=== PATIENT | female | born 1950 | race Caucasian/White ===

== ENCOUNTER 2016-08-25 20:41 | Emergency (ER) | payer BC ==
[~2016-08-25] VITALS: Ht 162.6 cm; Wt 61.0 kg
[~2016-08-25 20:41] MED LIST: BUTA1CAP PO; CALCTAB80 PO
[2016-08-25 20:48] VITALS: BP 120/62; PULSE 66; RESP 16; TEMP 97.7; O2SAT 100
[2016-08-25] MEDS ORDERED: CIPR3.5O RIGHT EYE (21:14)
--- NOTE | 2016-08-25 21:15 | PD ---
HPI Chief Complaint: Eye Problems/Injury Time Seen by Provider: 20:55 Travel History International Travel<30 days: No Contact w/Intl Traveler<30days: No Traveled to known affect area: No History of Present Illness HPI 66 year old female presents to the emergency room for evaluation of right eye irritation with foreign body sensation. She reports that earlier today she was mowing the grass outside and shortly thereafter felt as if she had a foreign body in her right eye. She attempted to irrigate the eye with eyewash several times with no relief. She reports mild visual changes related to the amount of tearing the eye is doing. Mild pain and irritation in the right eye. Foreign body sensation. PFSH Past Medical History Medical History: Denies Significant Hx Diminished Hearing: No Immunizations Current: No Migraines: Yes Tetanus Vaccination: < 5 Years Influenza Vaccination: Yes ?: Not Menopausal: Yes Past Surgical History Cholecystectomy: Yes (02) Social History Alcohol Use: No (pt states she does not drink) Tobacco Use: No Substance Use: No Allergies-Medications (Allergen,Severity, Reaction): Coded Allergies: Penicillin (Verified Allergy, Severe, RASH, 08/25/16) Reported Meds & Prescriptions Reported Meds & Active Scripts Active Fioricet (Mxrgxpkkti-Bpqhjzopnrpzi-Xdnfvqwn) 50-300-40 Mg Cap 1 Cap PO Q6H PRN Reported Calcium 1000 + D (Calcium Carbonate-Cholecalciferol) 1,000-800 Mg-Unit Tab 1 Tab PO BID Review of Systems Except as stated in HPI: all other systems reviewed are Neg Physical Exam Narrative GENERAL: [-] SKIN: Focused skin assessment warm/dry. HEAD: Atraumatic. Normocephalic. EYES: Pupils equal and round. No scleral icterus. Corneas clear. EOMs intact. Right eye injection. Ramires lamp exam of right eye: No foreign body visualized. No fluorescein dye uptake. ENT: No nasal bleeding or discharge. Mucous membranes pink and moist. NECK: Trachea midline. No JVD. CARDIOVASCULAR: Regular rate and rhythm. No murmur appreciated. RESPIRATORY: No accessory muscle use. Clear to auscultation. Breath sounds equal bilaterally. GASTROINTESTINAL: Abdomen soft, non-tender, nondistended. Hepatic and splenic margins not palpable. MUSCULOSKELETAL: No obvious deformities. No clubbing. No cyanosis. No edema. NEUROLOGICAL: Awake and alert. No obvious cranial nerve deficits. Motor grossly within normal limits. Normal speech. PSYCHIATRIC: Appropriate mood and affect; insight and judgment normal. Data Data Last Documented VS Vital Signs Date Time Temp Pulse Resp B/P Pulse Ox O2 Delivery O2 Flow Rate FiO2 08/25/16 20:48 97.7 66 16 120/62 100 MDM Medical Decision Making Medical Screen Exam Complete: Yes Emergency Medical Condition: Yes Differential Diagnosis Corneal foreign body, corneal abrasion, conjunctivitis Narrative Course 66-year-old female presents emergency department for evaluation of right eye irritation foreign-body sensation. She reports that earlier today while mowing grass sensing male flown into her eye. She attempted to irrigate the eye with eyewash several times with no relief. On exam the eye is injected. No foreign body visualized on exam or under lids. No fluorescein dye uptake. Patient will be treated with antibiotic ointment for corneal abrasion and instructed to follow-up with her systems development manager for recheck tomorrow. Patient agrees to this plan. Has an established systems development manager. Diagnosis Primary Impression: Corneal abrasion Qualified Code: S05.02XA - Corneal abrasion, left, initial encounter Referrals: Nurse Tech Patient Instructions: Corneal Abrasion (ED), General Instructions Additional Instructions: Make an appointment for follow-up with your systems development manager tomorrow. Scripts Ciprofloxacin Opth Oint (Ciloxan Opth Oint)0.3% Oint0.5 Inch RIGHT EYE TID #1 TUBE Ref 0 Prov:Maia Hicks 08/25/16 Disposition: 01 DISCHARGE HOME Condition: Stable Maia Hicks Aug 25, 2016 21:15
== END 2016-08-25 21:21 | disposition home or self-care (01) ==
LOC: PHEFT 20:41
DX: S05.02XA Injury of conjunctiva and corneal abrasion without foreign body, left eye, initial encounter (principal); X58.XXXA Exposure to other specified factors, initial encounter; Y93.H2 Activity, gardening and landscaping
CPT/HCPCS: 99283

== ENCOUNTER 2017-05-16 13:17 | Emergency (ER) | payer BC, MEDICARE ==
[~2017-05-16] VITALS: Ht 162.6 cm; Wt 61.0 kg
[~2017-05-16 13:17] MED LIST changes: +TRAZ50TA12 PO
[2017-05-16 13:41] VITALS: BP 152/68; PULSE 70; RESP 16; TEMP 98.2; O2SAT 100
[2017-05-16 15:12] LABS: AUTOMATED NEUTROPHIL # 6.2 TH/MM3 (1.8-7.7); BASOPHIL # 0.1 TH/MM3 (0-0.2); BASOPHIL % 0.9 % (0.0-2.0); EOSINOPHIL # 0.2 TH/MM3 (0-0.4); EOSINOPHIL % 2.2 % (0.0-4.0); HEMATOCRIT 26.1 % (35.0-46.0); HEMOGLOBIN 8.1 GM/DL (11.6-15.3); LYMPH % 15.7 % (9.0-44.0); LYMPHOCYTE # 1.3 TH/MM3 (1.0-4.8); MEAN CELL VOLUME 69.2 FL (80.0-100.0); MEAN CORPUSCULAR HEMOGLOBIN 21.6 PG (27.0-34.0); MEAN CORPUSCULAR HGB CONC 31.2 % (32.0-36.0); MEAN PLATELET VOLUME 7.2 FL (7.0-11.0); MONO % 5.5 % (0.0-8.0); MONOCYTE # 0.5 TH/MM3 (0-0.9); NEUT % 75.7 % (16.0-70.0); PLATELET COUNT 446 TH/MM3 (150-450); RED BLOOD COUNT 3.78 MIL/MM3 (4.00-5.30); RED CELL DISTRIBUTION WIDTH 16.4 % (11.6-17.2); WHITE BLOOD COUNT 8.3 TH/MM3 (4.0-11.0)
[2017-05-16 15:13] LABS: BILIRUBIN, URINE NEG (NEG); BLOOD, URINE NEG (NEG); GLUCOSE,URINE NEG (NEG); KETONE, URINE NEG (NEG); NITRITE,URINE NEG (NEG); PH, URINE 5.5 (5.0-8.5); URINE LEUKOCYTE ESTERASE SMALL (NEG)
--- NOTE | 2017-05-16 15:13 | PD ---
HPI . Constipation Chief Complaint: GI Complaint Time Seen by Provider: 14:47 Travel History International Travel<30 days: No Contact w/Intl Traveler<30days: No Traveled to known affect area: No History of Present Illness HPI This patient presents with chief complaint constipation. Onset was 2 weeks ago. She states that she had just gotten over the flu when she developed constipation. She states that she has attempted to treat it at home increasing her water intake, increasing her exercise, increasing the fiber in her diet and using a fleets enema. None of these have helped. She states that she is "leaking" a brown mucus from her rectum but is unable to have a bowel movement. She states that the leaking is spontaneous and uncontrollable. She denies any urinary symptoms. PFSH Past Medical History Diminished Hearing: No Immunizations Current: No Migraines: Yes ?: Not Menopausal: Yes Past Surgical History Cholecystectomy: Yes (02) Social History Alcohol Use: No (pt states she does not drink) Tobacco Use: No Substance Use: No Allergies-Medications (Allergen,Severity, Reaction): Coded Allergies: penicillin G (Unverified Allergy, Severe, RASH, 05/16/17) Reported Meds & Prescriptions Reported Meds & Active Scripts Active Trazodone (Trazodone HCl) 50 Mg Tab 50 Mg PO HS PRN Fioricet (Ubsmwkgddz-Rxsnwhjeriphp-Gblexaht) 50-300-40 Mg Cap 1 Cap PO Q6H PRN Reported Calcium 1000 + D (Calcium Carbonate-Cholecalciferol) 1,000-800 Mg-Unit Tab 1 Tab PO BID Review of Systems Except as stated in HPI: all other systems reviewed are Neg Physical Exam Narrative GENERAL: Awake and alert and in no acute distress. SKIN: warm/dry. Normal color and turgor. HEAD: Normocephalic. Atraumatic. EYES: Pupils equal and round. No scleral icterus. No injection or drainage. ENT: No nasal bleeding or discharge. Mucous membranes pink and moist. NECK: Trachea midline. Full range of motion without pain.. CARDIOVASCULAR: Regular rate and rhythm. RESPIRATORY: No accessory muscle use. Clear to auscultation. GASTROINTESTINAL: Abdomen soft. Nontender. She does have firmness in both lower quadrants which feel like masses, possibly impacted stool. RECTAL: There is some scant brown stool on her anus. The stool is Hemoccult negative. On digital exam, it feels like there is a mass anteriorly. MUSCULOSKELETAL: No obvious deformities. NEUROLOGICAL: Awake and alert. No obvious cranial nerve deficits. Motor grossly within normal limits. Normal speech. PSYCHIATRIC: Appropriate mood and affect; insight and judgment normal. Data Data Last Documented VS Vital Signs Date Time Temp Pulse Resp B/P (MAP) Pulse Ox O2 Delivery O2 Flow Rate FiO2 05/16/17 17:33 72 16 142/65 (90) 100 Room Air 05/16/17 13:41 98.2 Orders Orders ^ Saline Lock (05/16/17 14:55) Basic Metabolic Panel (Bmp) (05/16/17 14:55) Complete Blood Count With Diff (05/16/17 14:55) Urinalysis - C+S If Indicated (05/16/17 14:55) Ct Abd/Pel W Iv Contrast(Rout) (05/16/17 15:02) Oral Contrast - Adult (05/16/17 15:07) Diatrizoate Liq ( Gastroterra Liq) (05/16/17 15:54) Oral Contrast - Adult (05/16/17 15:56) Iohexol 350 Inj (Omnipaque 350 Inj) (05/16/17 17:19) Labs Laboratory Tests Test 05/16/17 14:50 05/16/17 15:00 Urine Color YELLOW Urine Turbidity CLEAR Urine pH 5.5 Urine Specific [place] 1.010 Urine Protein NEG mg/dL Urine Glucose (UA) NEG mg/dL Urine Ketones NEG mg/dL Urine Occult Blood NEG Urine Nitrite NEG Urine Bilirubin NEG Urine Leukocyte Esterase SMALL Urine WBC 0-2 /hpf Urine Squamous Epithelial Cells 0-5 /hpf Microscopic Urinalysis Comment CULT NOT INDICATED White Blood Count 8.3 TH/MM3 Red Blood Count 3.78 MIL/MM3 Hemoglobin 8.1 GM/DL Hematocrit 26.1 % Mean Corpuscular Volume 69.2 FL Mean Corpuscular Hemoglobin 21.6 PG Mean Corpuscular Hemoglobin Concent 31.2 % Red Cell Distribution Width 16.4 % Platelet Count 446 TH/MM3 Mean Platelet Volume 7.2 FL Neutrophils (%) (Auto) 75.7 % Lymphocytes (%) (Auto) 15.7 % Monocytes (%) (Auto) 5.5 % Eosinophils (%) (Auto) 2.2 % Basophils (%) (Auto) 0.9 % Neutrophils # (Auto) 6.2 TH/MM3 Lymphocytes # (Auto) 1.3 TH/MM3 Monocytes # (Auto) 0.5 TH/MM3 Eosinophils # (Auto) 0.2 TH/MM3 Basophils # (Auto) 0.1 TH/MM3 CBC Comment AUTO DIFF Differential Comment AUTO DIFF CONFIRMED Platelet Estimate HIGH Platelet Morphology Comment ENLARGED Blood Urea Nitrogen 16 MG/DL Creatinine 0.63 MG/DL Random Glucose 91 MG/DL Calcium Level 8.7 MG/DL Sodium Level 141 MEQ/L Potassium Level 3.5 MEQ/L Chloride Level 110 MEQ/L Carbon Dioxide Level 25.1 MEQ/L Anion Gap 6 MEQ/L Estimat Glomerular Filtration Rate 95 ML/MIN MDM Medical Decision Making Medical Screen Exam Complete: Yes Emergency Medical Condition: Yes Differential Diagnosis Differential diagnosis of constipation includes medication effect, irritable bowel syndrome, inadequate fiber, bowel obstruction Narrative Course This patient presents with the chief complaint constipation. I am concerned about rectal cancer. I have discussed the case with Dr. Kaye regarding the appropriate radiological procedure to evaluate this. He asked that I give the patient both IV and oral contrast and do a CT of the abdomen and pelvis. CBC & BMP Diagram 05/16/17 15:00 Calcium Level 8.7 Her most recent hemoglobin is from several years ago and was about 12. UA is negative. Last Impressions Abdomen/Pelvis CT 05/16/17 1502 Signed Impressions: Service Date/Time: Friday, May 16, 2017 17:14 - CONCLUSION: 1. Large amount of stool in the ascending and transverse colon consistent with history of constipation. There is apparent mild circumferential colonic wall thickening in the descending and sigmoid colon without significant inflammatory stranding. Although nonspecific and potentially of uncertain clinical significance, developing acute or resolving colitis cannot be entirely excluded. 2. Normal appendix 3. Otherwise, no acute abnormality. 4. 1 cm indeterminate density cystic lesion in the mid left kidney. Statistically, this reflects a complex cyst. Followup ultrasound examination may be performed in about 6 months to document stability as warranted. Edgar Ram MD I will treat her constipation with GoLYTELY. She should follow-up with her doctor within the next couple weeks. Physician Communication Physician Communication Dr. Kaye Diagnosis Primary Impression: Constipation Qualified Codes: K59.00 - Constipation, unspecified Patient Instructions: Constipation (DC), General Instructions Med/Other Pt SpecificInfo: Prescription(s) given Scripts Peg-Electrolytes (Golytely 236 gm) 4,000 Ml Soln 4000 ML PO ONCE for Bowel Cleanser, #1 CONTAINER 0 Refills Prov: Jazmyne Mares MD 05/16/17 Disposition: 01 DISCHARGE HOME Condition: Stable Jazmyne Mares MD May 16, 2017 15:13
[2017-05-16 15:23] LABS: CALCIUM 8.7 MG/DL (8.5-10.1)
[2017-05-16 15:24] LABS: BICARBONATE 25.1 MEQ/L (21.0-32.0)
[2017-05-16 15:25] LABS: URINE COLOR YELLOW (YELLW/STRAW)
[2017-05-16 15:26] LABS: SQUAMOUS EPITHELIAL CELL URINE 0-5 /hpf (0-5); WBC, URINE 0-2 /hpf (0-5)
[2017-05-16 15:27] LABS: CREATININE 0.63 MG/DL (0.50-1.00)
[2017-05-16] MEDS ORDERED: DIATRIZOATE MEGLUM/DIATRIZOATE SOD 9 ML CUP ONE (15:54)
[2017-05-16 16:17] VITALS: BP 140/65; PULSE 67; RESP 16; O2SAT 100
[2017-05-16] MEDS ORDERED: IOHEXOL 350 MG/ML 10 ML VIAL (for RAD DIAG) IVCONTRAST ONE (17:19)
[2017-05-16 17:33] VITALS: BP 142/65; PULSE 72; RESP 16; O2SAT 100
--- NOTE | 2017-05-16 18:27 | RADRPT ---
EXAM DATE/TIME: 05/16/2017 17:14 [facility] COMPARISON: No previous studies available for comparison. INDICATIONS : Constipation and lower abdominal cramping for two weeks. IV CONTRAST: 90 cc Omnipaque 350 (iohexol) IV ORAL CONTRAST: Prescribed oral contrast ingested. RADIATION DOSE: 10.00 CTDIvol (mGy) MEDICAL HISTORY : None SURGICAL HISTORY : Cholecystectomy. ENCOUNTER: Initial ACUITY: 2 weeks PAIN SCALE: 7/10 LOCATION: Bilateral pelvis TECHNIQUE: Volumetric scanning of the abdomen and pelvis was performed. Using automated exposure control and ad justment of the mA and/or kV according to patient size, radiation dose was kept as low as reasonably achievable to obtain optimal diagnostic quality images. DICOM format image data is available electro nically for review and comparison. FINDINGS: LOWER LUNGS: The visualized lower lungs are clear. LIVER: Homogeneous density without lesion. There is no dilation of the biliary tree. Gallbladder is surgica lly absent. SPLEEN: Normal size without lesion. PANCREAS: Within normal limits. KIDNEYS: Kidneys and this is symmetrical enhancement without hydronephrosis or radiopaque renal calculi. There is a 1 cm indeterminate density cystic lesion in the mid left kidney. ADRENAL GLANDS: Within normal limits. VASCULAR: There is no aortic aneurysm. BOWEL/MESENTERY: There is a large amount of stool in the ascending and transverse colon. Appendix is visualized and no rmal in appearance. There is mild circumferential apparent wall thickening involving the descending a nd sigmoid colon no significant inflammatory change. ABDOMINAL WALL: Within normal limits. RETROPERITONEUM: There is no lymphadenopathy. BLADDER: No wall thickening or mass. REPRODUCTIVE: Within normal limits. INGUINAL: There is no lymphadenopathy or hernia. MUSCULOSKELETAL: Within normal limits for patient age. CONCLUSION: 1. Large amount of stool in the ascending and transverse colon consistent with history of constipatio n. There is apparent mild circumferential colonic wall thickening in the descending and sigmoid colon without significant inflammatory stranding. Although nonspecific and potentially of uncertain clinic al significance, developing acute or resolving colitis cannot be entirely excluded. 2. Normal appendix 3. Otherwise, no acute abnormality. 4. 1 cm indeterminate density cystic lesion in the mid left kidney. Statistically, this reflects a co mplex cyst. Followup ultrasound examination may be performed in about 6 months to document stability as warranted. Edgar Ram MD on May 16, 2017 at 18:18 Board Certified Radiologist. This report was verified electronically.
[2017-05-16] MEDS ORDERED: COLY4000S PO (18:45)
[2017-05-16 18:55] VITALS: BP 140/80; PULSE 89; RESP 16; O2SAT 100
== END 2017-05-16 19:21 | disposition home or self-care (01) ==
LOC: PHED 13:17
DX: K59.00 Constipation, unspecified (principal)
CPT/HCPCS: 74177; 80048; 81001; 85025; 99284; Q9963; Q9967

== ENCOUNTER 2017-06-29 20:18 | Emergency (ER) | payer MEDICARE, BC ==
[~2017-06-29] VITALS: Ht 162.6 cm; Wt 56.0 kg
[~2017-06-29 20:18] MED LIST changes: +COLY4000S PO
[2017-06-29 20:24] VITALS: BP 118/56; PULSE 79; RESP 20; TEMP 97.9; O2SAT 100
[2017-06-29] MEDS ORDERED: SODIUM CHLOR 0.9% 1000 ML INJ 1,000 ML IV ONE (20:56)
--- NOTE | 2017-06-29 20:57 | PD ---
HPI Chief Complaint: GI Complaint Time Seen by Provider: 20:56 Travel History International Travel<30 days: No Contact w/Intl Traveler<30days: No Traveled to known affect area: No History of Present Illness HPI 67-year-old female presents to the emergency department by private transportation the care of her spouse for evaluation of nausea vomiting and diarrhea since last evening. Patient denies bilious emesis hematemesis coffee- ground emesis melena or hematochezia. Patient has a known exposure to person with viral GI illness or dietary indiscretion with foodborne illness. Patient states has been 2 days ago had GI bug with nausea vomiting and diarrhea after eating out food but his has resolved. Otherwise does not know of any possible persons with similar symptoms. Patient denies fever chills. Patient denies abdominal pain. Patient has had good urine output. Patient is attempted sips of water and fluids without success and due to ongoing vomiting and diarrhea has presented here for further evaluation. Patient has history of thyroid dysfunction but is on no medications and takes Fioricet on an occasional basis for migraines. Patient denies other concerns or complaints and rates her pain 0 /10 in intensity. Patient denies any well water ingestion or foreign travel. PFSH Past Medical History Narrative Medical Thyroid dysfunction migraines cholecystectomy occasional alcohol use; nursing notes reviewed Diminished Hearing: No Immunizations Current: No Migraines: Yes Menopausal: Yes Past Surgical History Cholecystectomy: Yes (02) Social History Alcohol Use: No (pt states she does not drink) Tobacco Use: No Substance Use: No Allergies-Medications (Allergen,Severity, Reaction): Coded Allergies: penicillin G (Unverified Allergy, Severe, RASH, 06/29/17) Reported Meds & Prescriptions Reported Meds & Active Scripts Active Zofran Odt (Ondansetron Odt) 4 Mg Tab 4 Mg SL Q6HR PRN Fioricet (Unzgkethdv-Usgppdwyxoymf-Ogierusl) 50-300-40 Mg Cap 1 Cap PO Q6H PRN Review of Systems Except as stated in HPI: all other systems reviewed are Neg General / Constitutional: No: Fever, Chills HENT: No: Congestion Cardiovascular: No: Chest Pain or Discomfort Respiratory: No: Shortness of Breath Gastrointestinal: Positive: Nausea, Vomiting, Diarrhea, No: Abdominal Pain, Hematemesis, Hematochezia Genitourinary: No: Dysuria, Decreased Urinary Output, Flank Pain Musculoskeletal: No: Myalgias, Arthralgias Skin: No Rash Neurologic: No: Weakness, Dizziness Psychiatric: No: Anxiety Hematologic/Lymphatic: No: Lymph Node Enlargement Physical Exam Narrative GENERAL: Well-developed well-nourished female no acute distress or respiratory distress SKIN: Warm and dry. HEAD: Normocephalic. EYES: No scleral icterus. No injection or drainage. NECK: Supple, trachea midline. No JVD or lymphadenopathy. CARDIOVASCULAR: Regular rate and rhythm without murmurs, gallops, or rubs. RESPIRATORY: Breath sounds equal bilaterally. No accessory muscle use. GASTROINTESTINAL: Abdomen soft, non-tender, nondistended. MUSCULOSKELETAL: No cyanosis, or edema. BACK: Nontender without obvious deformity. No CVA tenderness. Data Data Last Documented VS Vital Signs Date Time Temp Pulse Resp B/P (MAP) Pulse Ox O2 Delivery O2 Flow Rate FiO2 06/30/17 02:07 81 16 121/56 (77) 97 06/29/17 23:27 Room Air 06/29/17 20:24 97.9 Orders Orders Complete Blood Count With Diff (06/29/17 20:56) Comprehensive Metabolic Panel (06/29/17 20:56) Urinalysis - C+S If Indicated (06/29/17 20:56) Lipase (06/29/17 20:56) Iv Access Insert/Monitor (06/29/17 20:56) Ecg Monitoring (06/29/17 20:56) Oximetry (06/29/17 20:56) Ondansetron Inj (Zofran Inj) (06/29/17 21:00) Sodium Chlor 0.9% 1000 Ml Inj (Ns 1000 M (06/29/17 20:56) Sodium Chloride 0.9% Flush (Ns Flush) (06/29/17 21:00) Ed Discharge Order (06/29/17 23:21) Sodium Chlorid 0.9% 500 Ml Inj (Ns 500 M (06/29/17 23:30) Ondansetron Inj (Zofran Inj) (06/29/17 23:30) Metoclopramide Inj (Reglan Inj) (06/30/17 00:45) Sodium Chlorid 0.9% 500 Ml Inj (Ns 500 M (06/30/17 02:15) Labs Laboratory Tests Test 06/29/17 21:00 06/29/17 21:15 Urine Collection Type CLEAN CATCH Urine Color YELLOW Urine Turbidity CLEAR Urine pH 5.5 Urine Specific [place] GREATER/EQUAL 1.030 Urine Protein NEG mg/dL Urine Glucose (UA) NEG mg/dL Urine Ketones 40 mg/dL Urine Occult Blood TRACE Urine Nitrite NEG Urine Bilirubin NEG Urine Urobilinogen 0.2 MG/DL Urine Leukocyte Esterase NEG Urine RBC 0-3 /hpf Urine WBC 3-5 /hpf Urine Squamous Epithelial Cells 6-8 /hpf Urine Mucus MOD /lpf Microscopic Urinalysis Comment CULT NOT INDICATED White Blood Count 7.6 TH/MM3 Red Blood Count 3.73 MIL/MM3 Hemoglobin 8.1 GM/DL Hematocrit 25.5 % Mean Corpuscular Volume 68.5 FL Mean Corpuscular Hemoglobin 21.6 PG Mean Corpuscular Hemoglobin Concent 31.6 % Red Cell Distribution Width 17.4 % Platelet Count 309 TH/MM3 Mean Platelet Volume 7.5 FL Neutrophils (%) (Auto) 87.3 % Lymphocytes (%) (Auto) 7.0 % Monocytes (%) (Auto) 5.1 % Eosinophils (%) (Auto) 0.4 % Basophils (%) (Auto) 0.2 % Neutrophils # (Auto) 6.7 TH/MM3 Lymphocytes # (Auto) 0.5 TH/MM3 Monocytes # (Auto) 0.4 TH/MM3 Eosinophils # (Auto) 0.0 TH/MM3 Basophils # (Auto) 0.0 TH/MM3 CBC Comment AUTO DIFF Differential Comment AUTO DIFF CONFIRMED Platelet Estimate NORMAL Platelet Morphology Comment NORMAL Blood Urea Nitrogen 15 MG/DL Creatinine 0.75 MG/DL Random Glucose 98 MG/DL Total Protein 7.6 GM/DL Albumin 3.9 GM/DL Calcium Level 9.2 MG/DL Alkaline Phosphatase 62 U/L Aspartate Amino Transf (AST/SGOT) 18 U/L Alanine Aminotransferase (ALT/SGPT) 15 U/L Total Bilirubin 0.5 MG/DL Sodium Level 140 MEQ/L Potassium Level 3.4 MEQ/L Chloride Level 108 MEQ/L Carbon Dioxide Level 22.6 MEQ/L Anion Gap 9 MEQ/L Estimat Glomerular Filtration Rate 77 ML/MIN Lipase 92 U/L [facility] Medical Decision Making Medical Screen Exam Complete: Yes Emergency Medical Condition: Yes Medical Record Reviewed: Yes Interpretation(s) CBC & BMP Diagram 06/29/17 21:15 Total Protein 7.6, Albumin 3.9, Calcium Level 9.2, Alkaline Phosphatase 62, Aspartate Amino Transf (AST/SGOT) 18, Alanine Aminotransferase (ALT/SGPT) 15, Total Bilirubin 0.5 Vital Signs Date Time Temp Pulse Resp B/P (MAP) Pulse Ox O2 Delivery O2 Flow Rate FiO2 06/29/17 22:11 60 16 109/52 (71) 100 Room Air 06/29/17 21:17 16 97 Room Air 06/29/17 20:24 97.9 79 20 118/56 (76) 100 Differential Diagnosis Viral syndrome, gastroenteritis, foodborne illness, electrolyte disturbance, anemia, UTI Narrative Course IV access obtained patient administered 1 L bolus of normal saline along with Zofran 4 mg IV; specimens collections of resulting Patient symptomatically improved after IV fluids and Zofran Patient tolerating oral hydration well Lab values remarkable for anemia which appears to be stable and chronic Patient is encouraged to follow-up with her primary care provider and provided prescription for Zofran and encouraged to follow clear liquid diet for next 1224 hrs. and advance as tolerated to increase fluid hydration Diagnosis Primary Impression: Gastroenteritis Additional Impression: Anemia Referrals: Primary Care Physician call for appointment Patient Instructions: General Instructions Additional Instructions: Increase fluid hydration Follow clear liquid diet for next 12-24 hours advance to bland/brat diet and regular diet as tolerated Take Zofran as prescribed as needed for nausea and/or vomiting Take acetaminophen or ibuprofen as needed for fever 100.4F or greater or for minor pain Follow-up with your primary care provider call office to schedule follow-up appointment Return the emergency department for any concerns or change in condition Med/Other Pt SpecificInfo: Prescription(s) given Scripts Ondansetron Odt (Zofran Odt) 4 Mg Tab 4 MG SL Q6HR Y for Nausea/Vomiting, #10 TAB 0 Refills Prov: Tati Duran MD 06/29/17 Disposition: 01 DISCHARGE HOME Condition: Stable Tati Duran MD Jun 29, 2017 20:57
[2017-06-29] MEDS ORDERED: SODIUM CHLORIDE 0.9% FLUSH 10 ML FLUSH IVF PRN (21:00)
[2017-06-29] MEDS ORDERED: ONDANSETRON HCL 4 MG/2 ML VIAL IV PUSH ONE ×2 (21:00→23:30)
[2017-06-29 21:16] LABS: BLOOD, URINE TRACE (NEG); GLUCOSE,URINE NEG (NEG); KETONE, URINE 40 mg/dL (NEG); NITRITE,URINE NEG (NEG); PH, URINE 5.5 (5.0-8.5); URINE COLOR YELLOW (YELLW/STRAW); URINE LEUKOCYTE ESTERASE NEG (NEG)
[2017-06-29 21:17] VITALS: RESP 16; O2SAT 97
[2017-06-29 21:34] LABS: BILIRUBIN, URINE NEG (NEG)
[2017-06-29 21:54] LABS: AUTOMATED NEUTROPHIL # 6.7 TH/MM3 (1.8-7.7); BASOPHIL % 0.2 % (0.0-2.0); EOSINOPHIL % 0.4 % (0.0-4.0); HEMATOCRIT 25.5 % (35.0-46.0); HEMOGLOBIN 8.1 GM/DL (11.6-15.3); LYMPHOCYTE # 0.5 TH/MM3 (1.0-4.8); MEAN CELL VOLUME 68.5 FL (80.0-100.0); MEAN CORPUSCULAR HEMOGLOBIN 21.6 PG (27.0-34.0); MEAN CORPUSCULAR HGB CONC 31.6 % (32.0-36.0); MEAN PLATELET VOLUME 7.5 FL (7.0-11.0); MONO % 5.1 % (0.0-8.0); MONOCYTE # 0.4 TH/MM3 (0-0.9); NEUT % 87.3 % (16.0-70.0); PLATELET COUNT 309 TH/MM3 (150-450); RED BLOOD COUNT 3.73 MIL/MM3 (4.00-5.30); RED CELL DISTRIBUTION WIDTH 17.4 % (11.6-17.2); WHITE BLOOD COUNT 7.6 TH/MM3 (4.0-11.0)
[2017-06-29 22:01] LABS: MUCUS URINE MOD /lpf (OCC)
[2017-06-29 22:02] LABS: RBC, URINE 0-3 /hpf (0-3)
[2017-06-29 22:07] LABS: CHLORIDE 108 MEQ/L (98-107); SODIUM (NA) 140 MEQ/L (136-145)
[2017-06-29 22:11] VITALS: BP 109/52; PULSE 60; RESP 16; O2SAT 100
[2017-06-29 22:11] LABS: ALBUMIN 3.9 GM/DL (3.4-5.0)
[2017-06-29 22:12] LABS: BICARBONATE 22.6 MEQ/L (21.0-32.0); BLOOD UREA NITROGEN 15 MG/DL (7-18); CALCIUM 9.2 MG/DL (8.5-10.1); GLUCOSE,RANDOM 98 MG/DL (74-106)
[2017-06-29 22:15] LABS: ALT (GPT) 15 U/L (10-53); AST (GOT) 18 U/L (15-37)
[2017-06-29 22:16] LABS: CREATININE 0.75 MG/DL (0.50-1.00); GLOMERULAR FILTRATION RATE 77 ML/MIN (>89)
[2017-06-29 22:17] LABS: TOTAL BILIRUBIN ADULT 0.5 MG/DL (0.2-1.0); TOTAL PROTEIN 7.6 GM/DL (6.4-8.2)
[2017-06-29 22:18] LABS: ALKALINE PHOSPHATASE 62 U/L (45-117)
[2017-06-29] MEDS ORDERED: ZOFR4TAB3 SL (23:24)
[2017-06-29 23:27] VITALS: BP 125/62; PULSE 74; RESP 16; O2SAT 100
[2017-06-29] MEDS ORDERED: SODIUM CHLORID 0.9% 500 ML INJ 500 ML IV ONE (23:30)
[2017-06-30] MEDS ORDERED: METOCLOPRAMIDE HCL 10 MG/2 ML VIAL IV PUSH ONE (00:45)
[2017-06-30 02:07] VITALS: BP 121/56
[2017-06-30] MEDS ORDERED: SODIUM CHLORID 0.9% 500 ML INJ 500 ML IV ONE (02:15)
== END 2017-06-30 02:17 | disposition home or self-care (01) ==
LOC: PHED 20:18
DX: K52.9 Noninfective gastroenteritis and colitis, unspecified (principal); D64.9 Anemia, unspecified; Z88.0 Allergy status to penicillin
CPT/HCPCS: 80053; 81001; 83690; 85025; 96361; 96374; 96375; 96376; 99284; J2405; J2765; J7030; J7040